=== PATIENT | female | born 1935 | race Caucasian/White ===

== ENCOUNTER 2018-01-16 17:45 | Emergency (ER) | payer OTHER ==
[~2018-01-16] VITALS: Ht 162.6 cm; Wt 83.0 kg
[~2018-01-16 17:45] MED LIST: AZIT250 PO; Amlodipine Bes2.5 MG PO; B-121000 MC2 PO; BYSTOLIC; CEPH500 PO; CETI10 PO; DILT240; DISO100ER; ESOM20; FURO20 PO; FURO40 PO; GLIP5ER PO; HYDACE5 PO; HYDACE7.5 PO; HYDCHL25; HYDCHL50; LORA.5; LORA.5 PO; LORA1; METO25ER; METO50ER; MULVITMIND PO; NEBI10 PO; OMEP20ER PO; PANT40 PO; POTCHL10ER; POTCHL20ER PO; PROACE100 PO; RXLORA1 PO; SPIHYD; TRAM50 PO; VALS80; VALS80 PO; WARF3; WARF3 PO; WARF6; WARF6 PO
[2018-01-16] MEDS ORDERED: TRAM50 PO (18:04)
[2018-01-16] MEDS ORDERED: LORA1 PO (18:04)
[2018-01-16 18:55] LABS: Calcium, Ionized (POC) 0.84 mmol/L (1.10-1.46); Chloride (POC) 103 mmol/L (98-108); Creatinine (POC) 0.8 mg/dL (0.6-1.0); Glucose (ISTAT POC) 141 mg/dL (70-99); Hemoglobin (POC) 15.3 g/dL (12.0-16.0); Potassium (POC) 3.8 mmol/L (3.5-5.5); Sodium (POC) 136 mmol/L (135-148); Total CO2 (POC) 24 mmol/L (21-32)
[2018-01-16 19:00] LABS: BASOPHILS ABSOLUTE AUTO 0.04 K/mm3 (0.00-0.23); BASOPHILS PERCENT AUTO 1 % (0-2); EOSINOPHILS ABSOLUTE AUTO 0.09 K/mm3 (0.00-0.68); EOSINOPHILS PERCENT AUTO 1 % (0-6); Hemoglobin 14.8 g/dL (11.5-16.0); IMMATURE GRAN ABSOLUTE AUTO 0.04 K/mm3 (0.00-0.10); IMMATURE GRAN PERCENT AUTO 1 % (0-1); LYMPHOCYTES ABSOLUTE AUTO 1.23 K/mm3 (0.84-5.20); LYMPHOCYTES PERCENT AUTO 19 % (21-46); MONOCYTES ABSOLUTE AUTO 0.43 K/mm3 (0.16-1.47); MONOCYTES PERCENT AUTO 7 % (4-13); Mean Corpuscular HGB Conc 32.9 g/dL (31.5-36.5); Mean Corpuscular Volume 88 fL (80-100); Mean Platelet Volume 8.8 fL (9.1-12.4); NEUTROPHILS ABSOLUTE AUTO 4.59 K/mm3 (1.96-9.15); NEUTROPHILS PERCENT AUTO 72 % (41-73); Platelet Count 170 K/mm3 (150-400); RDW Coefficient Variation 13.2 % (11.7-14.2); RDW Standard Deviation 42.9 fL (35.1-46.3); White Blood Cell Count 6.42 K/mm3 (4.00-11.30)
[2018-01-16 19:17] LABS: International Normalized Ratio 2.13; Prothrombin Time Results 22.7 Sec (9.7-11.5)
[2018-01-16 19:23] LABS: Alanine Aminotransfer (ALT/SGP 15 U/L (12-78); Albumin, Blood 3.6 g/dL (3.4-5.0); Albumin/Globulin Ratio 0.9 (0.8-1.8); Alk Phos 71 U/L (50-136); Anion Gap 10 mmol/L (6-16); Aspartate Aminotrans (AST/SGOT 17 U/L (12-37); Bilirubin, Total 0.4 mg/dL (0.1-1.0); Blood Urea Nitrogen 18 mg/dL (8-24); Bun/Creatinine Ratio 21.8 (12.0-20.0); CO2, Blood 26 mmol/L (21-32); Calcium, Blood 9.2 mg/dL (8.5-10.1); Chloride, Blood 102 mmol/L (98-108); Creatinine, Blood 0.83 mg/dL (0.40-1.00); Globulin, Blood 4.1 g/dL (2.2-4.0); Glomerular Filtration Rate >60 (60-); Glucose, Blood 136 mg/dL (70-99); Potassium, Blood 3.8 mmol/L (3.5-5.5); Sodium, Blood 138 mmol/L (136-145); Total Protein, Blood 7.7 g/dL (6.4-8.2)
[2018-01-16] MEDS ORDERED: AMLO5 PO (19:44)
== END 2018-01-16 21:34 | disposition home or self-care (01) ==
LOC: ER 17:45
PROVIDERS: Emergency Medicine
DX: S20.211A Contusion of right front wall of thorax, initial encounter (principal); S00.83XA Contusion of other part of head, initial encounter; I50.9 Heart failure, unspecified; I48.91 Unspecified atrial fibrillation; Z88.8 Allergy status to other drugs, medicaments and biological substances; Z88.7 Allergy status to serum and vaccine; Z88.0 Allergy status to penicillin; Z88.5 Allergy status to narcotic agent; Z79.899 Other long term (current) drug therapy; Z79.01 Long term (current) use of anticoagulants; Z87.891 Personal history of nicotine dependence; W01.0XXA Fall on same level from slipping, tripping and stumbling without subsequent striking against object, initial encounter
CPT/HCPCS: 36415; 70450; 71260; 72125; 74177; 80047; 80053; 83690; 85014; 85025; 85610; 99284; J7030; Q9967

== ENCOUNTER → 2018-01-26 | Outpatient (CLI) | payer OTHER ==
[~2018-01-26] MED LIST changes: +AMLO5 PO; +LORA1 PO
[2018-01-26 13:12] LABS: Source, Urine Catheter
[2018-01-26 14:25] LABS: Appearance, Urine Clear (Clear); Bilirubin, Urine Neg (Neg); Blood, Urine 1+ (Neg); Color, Urine Yellow (P-Yellow); Glucose Qualitative, Urine Neg (Neg); Ketones, Urine Neg (Neg); Leukocyte Esterase, Urine Neg (Neg); Nitrite, Urine Neg (Neg); Protein, Urine 1+ (Neg); Specific Gravity, Urine 1.015 (1.003-1.022); Urobilinogen, Urine NORM (Normal)
[2018-01-26 14:46] LABS: White Blood Cells, Urine 0-2 /hpf (0-5)
[2018-01-26 14:48] LABS: Bacteria Few /hpf; Hyaline Casts 0-2 /lpf (0-2); Squamous Epithelial Cells Few /hpf (Few)
== END ==
LOC: LAB SHORT 12:51 → OLS 12:51
PROVIDERS: Nurse Practitioner Women's Health
DX: N39.0 Urinary tract infection, site not specified (principal); N95.2 Postmenopausal atrophic vaginitis; N81.10 Cystocele, unspecified; N99.3 Prolapse of vaginal vault after hysterectomy; Z91.81 History of falling; Z96.0 Presence of urogenital implants
CPT/HCPCS: 81001

== ENCOUNTER → 2018-12-16 | Outpatient (CLI) | payer OTHER ==
[~2018-12-16] MED LIST changes: +Pyridium200 MG PO
== END | disposition home or self-care (01) ==
LOC: LAB SHORT 09:00 → LAB 09:00
DX: R30.0 Dysuria (principal)
CPT/HCPCS: 87086

== ENCOUNTER 2018-12-19 17:24 | Emergency (ER) | payer OTHER ==
[~2018-12-19] VITALS: Ht 167.6 cm; Wt 81.7 kg
[~2018-12-19 17:24] MED LIST changes: -Pyridium200 MG PO
[2018-12-19 18:14] LABS: BASOPHILS ABSOLUTE AUTO 0.05 K/mm3 (0.00-0.23); BASOPHILS PERCENT AUTO 1 % (0-2); EOSINOPHILS ABSOLUTE AUTO 0.05 K/mm3 (0.00-0.68); EOSINOPHILS PERCENT AUTO 1 % (0-6); Hematocrit 43.4 % (33.0-51.0); Hemoglobin 14.1 g/dL (11.5-16.0); IMMATURE GRAN ABSOLUTE AUTO 0.14 K/mm3 (0.00-0.10); IMMATURE GRAN PERCENT AUTO 1 % (0-1); LYMPHOCYTES ABSOLUTE AUTO 2.11 K/mm3 (0.84-5.20); LYMPHOCYTES PERCENT AUTO 19 % (21-46); MONOCYTES ABSOLUTE AUTO 0.64 K/mm3 (0.16-1.47); MONOCYTES PERCENT AUTO 6 % (4-13); Mean Corpuscular HGB 29.9 pg (26.0-34.0); Mean Corpuscular HGB Conc 32.5 g/dL (31.5-36.5); NEUTROPHILS ABSOLUTE AUTO 8.12 K/mm3 (1.96-9.15); NEUTROPHILS PERCENT AUTO 73 % (41-73); Platelet Count 220 K/mm3 (150-400); RDW Coefficient Variation 13.6 % (11.7-14.2); RDW Standard Deviation 46.5 fL (35.1-46.3); Red Blood Cell Count 4.72 M/mm3 (3.80-5.20); White Blood Cell Count 11.11 K/mm3 (4.00-11.30)
[2018-12-19 18:18] LABS: Mean Corpuscular Volume 92 fL (80-100)
[2018-12-19] MEDS ORDERED: CEPH500 PO (18:22)
[2018-12-19] MEDS ORDERED: Pyridium200 MG PO (18:22)
[2018-12-19 18:43] LABS: Alanine Aminotransfer (ALT/SGP 20 U/L (12-78); Albumin, Blood 3.8 g/dL (3.4-5.0); Albumin/Globulin Ratio 0.9 (0.8-1.8); Alk Phos 76 U/L (50-136); Anion Gap 6 mmol/L (6-16); Aspartate Aminotrans (AST/SGOT 18 U/L (12-37); Bilirubin, Total 0.7 mg/dL (0.1-1.0); Blood Urea Nitrogen 23 mg/dL (8-24); Bun/Creatinine Ratio 28.8 (12.0-20.0); CO2, Blood 26 mmol/L (21-32); Chloride, Blood 104 mmol/L (98-108); Globulin, Blood 4.3 g/dL (2.2-4.0); Glomerular Filtration Rate >60 (60-); Glucose, Blood 157 mg/dL (70-99); Potassium, Blood 3.9 mmol/L (3.5-5.5); Sodium, Blood 136 mmol/L (136-145); Total Protein, Blood 8.1 g/dL (6.4-8.2); Troponin I <0.015 ng/mL (0.000-0.040)
[2018-12-19 18:55] LABS: International Normalized Ratio 1.7; Prothrombin Time Results 17.2 Sec (9.7-11.5)
== END 2018-12-19 19:42 | disposition home or self-care (01) ==
LOC: ER 17:24
PROVIDERS: Physician Assistant
DX: I11.0 Hypertensive heart disease with heart failure (principal); I50.9 Heart failure, unspecified; E11.9 Type 2 diabetes mellitus without complications; F41.9 Anxiety disorder, unspecified; I48.91 Unspecified atrial fibrillation; K21.9 Gastro-esophageal reflux disease without esophagitis; M19.90 Unspecified osteoarthritis, unspecified site; Z85.3 Personal history of malignant neoplasm of breast; Z87.891 Personal history of nicotine dependence
CPT/HCPCS: 71046; 80053; 83880; 84484; 85025; 85610; 93005; 93010; 99285-25

== ENCOUNTER → 2019-06-12 | Outpatient (CLI) | payer OTHER ==
[~2019-06-12] MED LIST changes: +ATOR10 PO; +HYDR10 PO; +Klor-Con 1010 MEQ PO; +LEVSOD25 PO; +LOSA50 PO; -POTCHL20ER PO; +Pyridium200 MG PO; +[UNRECOGNIZED DRUG - OTHER] TOP
[2019-06-13 15:07] LABS: HPV 16 Negative (Negative); HPV 18 Negative (Negative); HPV OTHER HR TYPES Negative (Negative)
== END ==
LOC: LAB 12:27 → LAB SHORT 12:27
PROVIDERS: Nurse Practitioner Women's Health
DX: Z12.72 Encounter for screening for malignant neoplasm of vagina (principal)
CPT/HCPCS: 87624; G0123

== ENCOUNTER 2019-06-17 11:58 | Emergency (ER) | payer OTHER ==
[~2019-06-17] VITALS: Ht 162.6 cm; Wt 77.6 kg
[~2019-06-17 11:58] MED LIST changes: -ATOR10 PO; -HYDR10 PO; -LEVSOD25 PO; -LOSA50 PO; -[UNRECOGNIZED DRUG - OTHER] TOP
[2019-06-17 12:44] LABS: BASOPHILS ABSOLUTE AUTO 0.04 K/mm3 (0.00-0.23); BASOPHILS PERCENT AUTO 1 % (0-2); EOSINOPHILS ABSOLUTE AUTO 0.07 K/mm3 (0.00-0.68); EOSINOPHILS PERCENT AUTO 1 % (0-6); Hematocrit 45.8 % (33.0-51.0); Hemoglobin 14.7 g/dL (11.5-16.0); IMMATURE GRAN ABSOLUTE AUTO 0.03 K/mm3 (0.00-0.10); IMMATURE GRAN PERCENT AUTO 0 % (0-1); LYMPHOCYTES ABSOLUTE AUTO 1.76 K/mm3 (0.84-5.20); LYMPHOCYTES PERCENT AUTO 23 % (21-46); MONOCYTES ABSOLUTE AUTO 0.43 K/mm3 (0.16-1.47); MONOCYTES PERCENT AUTO 6 % (4-13); Mean Corpuscular HGB 29.1 pg (26.0-34.0); Mean Corpuscular HGB Conc 32.1 g/dL (31.5-36.5); Mean Corpuscular Volume 91 fL (80-100); Mean Platelet Volume 8.9 fL (9.1-12.4); NEUTROPHILS ABSOLUTE AUTO 5.35 K/mm3 (1.96-9.15); NEUTROPHILS PERCENT AUTO 70 % (41-73); Platelet Count 186 K/mm3 (150-400); RDW Coefficient Variation 13.2 % (11.7-14.2); RDW Standard Deviation 43.9 fL (35.1-46.3); Red Blood Cell Count 5.06 M/mm3 (3.80-5.20); White Blood Cell Count 7.68 K/mm3 (4.00-11.30)
[2019-06-17 12:59] LABS: International Normalized Ratio 2.58; Prothrombin Time Results 25.1 Sec (9.7-11.5)
[2019-06-17 13:23] LABS: Albumin, Blood 3.8 g/dL (3.4-5.0); Bilirubin, Total 0.8 mg/dL (0.1-1.0); Bun/Creatinine Ratio 16.7 (12.0-20.0); Calcium, Blood 9.2 mg/dL (8.5-10.1); Creatinine, Blood 0.96 mg/dL (0.40-1.00); Total Protein, Blood 7.8 g/dL (6.4-8.2)
[2019-06-17 13:34] LABS: Bilirubin, Urine Neg (Neg); Blood, Urine 1+ (Neg); Glucose Qualitative, Urine Neg (Neg); Ketones, Urine Neg (Neg); Leukocyte Esterase, Urine 3+ (Neg); Nitrite, Urine Neg (Neg); Protein, Urine Neg (Neg); Source, Urine Clean Catch; Urobilinogen, Urine NORM (Normal)
[2019-06-17 14:13] LABS: Appearance, Urine Clear (Clear); Color, Urine Yellow (P-Yellow)
[2019-06-17 14:14] LABS: White Blood Cells, Urine 25-50 /hpf (0-5)
[2019-06-17 14:15] LABS: Bacteria Mod /hpf; Red Blood Cells, Urine 0-2 /hpf (0-2); Squamous Epithelial Cells Mod /hpf (Few)
[2019-06-17] MEDS ORDERED: LEVSOD25 PO (14:32)
[2019-06-17] MEDS ORDERED: LOSA50 PO (14:35)
== END 2019-06-17 16:43 | disposition home or self-care (01) ==
LOC: ER 11:58
PROVIDERS: Physician Assistant
DX: G45.9 Transient cerebral ischemic attack, unspecified (principal); I11.0 Hypertensive heart disease with heart failure; I50.9 Heart failure, unspecified; I48.91 Unspecified atrial fibrillation; E11.9 Type 2 diabetes mellitus without complications; F41.9 Anxiety disorder, unspecified; K21.9 Gastro-esophageal reflux disease without esophagitis; Z87.891 Personal history of nicotine dependence
CPT/HCPCS: 36415; 70450; 80053; 81001; 85025; 85610; 87086; 93005; 93010; 96374; 99284-25; J0360

== ENCOUNTER 2019-06-19 10:13 | Observation (INO) | payer OTHER ==
[~2019-06-19] VITALS: Ht 162.6 cm; Wt 75.5 kg
[~2019-06-19 10:13] MED LIST changes: +LEVSOD25 PO; +LOSA50 PO
[2019-06-19 11:12] LABS: BASOPHILS ABSOLUTE AUTO 0.02 K/mm3 (0.00-0.23); BASOPHILS PERCENT AUTO 0 % (0-2); EOSINOPHILS ABSOLUTE AUTO 0.04 K/mm3 (0.00-0.68); EOSINOPHILS PERCENT AUTO 0 % (0-6); Hematocrit 43.5 % (33.0-51.0); Hemoglobin 14.1 g/dL (11.5-16.0); IMMATURE GRAN ABSOLUTE AUTO 0.03 K/mm3 (0.00-0.10); IMMATURE GRAN PERCENT AUTO 0 % (0-1); LYMPHOCYTES PERCENT AUTO 12 % (21-46); MONOCYTES ABSOLUTE AUTO 0.53 K/mm3 (0.16-1.47); MONOCYTES PERCENT AUTO 6 % (4-13); Mean Corpuscular HGB 29.9 pg (26.0-34.0); Mean Corpuscular HGB Conc 32.4 g/dL (31.5-36.5); Mean Corpuscular Volume 92 fL (80-100); NEUTROPHILS ABSOLUTE AUTO 7.81 K/mm3 (1.96-9.15); NEUTROPHILS PERCENT AUTO 82 % (41-73); Platelet Count 152 K/mm3 (150-400); RDW Coefficient Variation 13.2 % (11.7-14.2); Red Blood Cell Count 4.72 M/mm3 (3.80-5.20); White Blood Cell Count 9.53 K/mm3 (4.00-11.30)
[2019-06-19 11:29] LABS: International Normalized Ratio 3.08; Prothrombin Time Results 29.5 Sec (9.7-11.5)
[2019-06-19 11:36] LABS: Alanine Aminotransfer (ALT/SGP 20 U/L (12-78); Albumin, Blood 3.3 g/dL (3.4-5.0); Albumin/Globulin Ratio 0.8 (0.8-1.8); Alk Phos 68 U/L (50-136); Anion Gap 5 mmol/L (6-16); Aspartate Aminotrans (AST/SGOT 17 U/L (12-37); Blood Urea Nitrogen 18 mg/dL (8-24); Bun/Creatinine Ratio 21.5 (12.0-20.0); CO2, Blood 28 mmol/L (21-32); Calcium, Blood 8.5 mg/dL (8.5-10.1); Chloride, Blood 104 mmol/L (98-108); Creatinine, Blood 0.84 mg/dL (0.40-1.00); Glomerular Filtration Rate >60 (60-); Glucose, Blood 147 mg/dL (70-99); Potassium, Blood 3.8 mmol/L (3.5-5.5); Sodium, Blood 137 mmol/L (136-145); Total Protein, Blood 7.3 g/dL (6.4-8.2)
[2019-06-19] MEDS ORDERED: WARF3 PO (12:20)
[2019-06-19] MEDS ORDERED: LOSA50 PO (12:21)
[2019-06-19] MEDS ORDERED: [UNRECOGNIZED DRUG - OTHER] TOP (12:22)
--- NOTE | 2019-06-19 18:20 | NUR ---
SHIFT SUMMARY 1455 RECEIVED PT TO 337 FROM ER. A&O, PLEASANT AND CO-OP WITH FAMILY AT . RECEIVED REPORT FROM BASSEM GOODEN. PT TO ER WITH C/O CONFUSION AND SPEECH DIFFICULTY INITIALLY BUT LATER C/O R ARM SWELLING AND NUMBNESS. PT TO ER A COUPLE OF DAYS AGO FOR SAME COMPLAINT AND WAS REPORTED TO HAVE HAD A TIA. PT WITH HX OF R MASTECTOMY AND NOW LYMPHODEMA. US AND ECHO COMPLETE IN ER. HX OF CHF, A-FIB, HTN, AND ANXIETY. R ARM SWELLING AND REDNESS IMPROVING PER PT AND DAUGHTERS IN . PT MEDICATED FOR C/O MOREIRA; TYLENOL GIVEN PER EMAR. COUMADIN GIVEN FOR AFIB. PER PCU MX TECH, PT PRESENTLY A-FIB @ 81. BP ELEVATED IN ER. PER BASSEM GOODEN, PT RECEIVED BP MEDICATION AND BP DIMITRY'D; SEE CHART. PT TO RECEIVE ADDITIONAL BP MEDS TONIGHT. PT HAS BEEN RESTING QUIETLY AND VISITING WITH SEVERAL DAUGHTERS IN AT BS. SITTING UP TO EOB EATING DINNER. NO S/SX OF DISTRESS NOTED OR REPORTED. CALL LT IN REACH.
--- NOTE | 2019-06-19 23:06 | NUR ---
PT HYPERTENSIVE NIGHT HOSPITALIST INFORMED. GAVE PT'S SCHEDULED BP MEDS, BP 172/128 FORY-FIVE MINUTES LATER. GAVE PRN ORAL APRESOLINE. BP 177/112 ONE HOUR LATER. HOSPITALIST ORDERED IV APRESOLINE. WILL CONTINUE TO MONITOR.
[2019-06-20 05:01] LABS: BASOPHILS ABSOLUTE AUTO 0.03 K/mm3 (0.00-0.23); BASOPHILS PERCENT AUTO 0 % (0-2); EOSINOPHILS ABSOLUTE AUTO 0.07 K/mm3 (0.00-0.68); EOSINOPHILS PERCENT AUTO 1 % (0-6); Hemoglobin 13.6 g/dL (11.5-16.0); IMMATURE GRAN ABSOLUTE AUTO 0.04 K/mm3 (0.00-0.10); IMMATURE GRAN PERCENT AUTO 0 % (0-1); LYMPHOCYTES ABSOLUTE AUTO 1.12 K/mm3 (0.84-5.20); LYMPHOCYTES PERCENT AUTO 10 % (21-46); MONOCYTES ABSOLUTE AUTO 0.69 K/mm3 (0.16-1.47); MONOCYTES PERCENT AUTO 6 % (4-13); Mean Corpuscular HGB 29.1 pg (26.0-34.0); Mean Corpuscular HGB Conc 32.4 g/dL (31.5-36.5); Mean Corpuscular Volume 90 fL (80-100); Mean Platelet Volume 8.9 fL (9.1-12.4); NEUTROPHILS ABSOLUTE AUTO 9.43 K/mm3 (1.96-9.15); NEUTROPHILS PERCENT AUTO 83 % (41-73); Platelet Count 146 K/mm3 (150-400); RDW Coefficient Variation 13.3 % (11.7-14.2); Red Blood Cell Count 4.67 M/mm3 (3.80-5.20); White Blood Cell Count 11.38 K/mm3 (4.00-11.30)
[2019-06-20 05:19] LABS: International Normalized Ratio 2.58; Prothrombin Time Results 25.1 Sec (9.7-11.5)
--- NOTE | 2019-06-20 06:04 | NUR ---
GOT REPORT FROM ALEXSANDRA GOODEN. PT'S BP 171/113 PRN IV HYDRALAZINE GIVEN AND BP CAME DOWN TO 148/95. SHE WAS ABLE TO DOZE ON AND OFF T/O NIGHT BUT C/O HEATING DUCT TOO LOUD AND GIVEN EARPLUGS FOR SOUND. SHE SAID IT HELPED A LITTLE. NO C/O PAIN. [place] TO JESUSITA. A/O CALLING APPROPRIATELY.
[2019-06-20] MEDS ORDERED: ATOR10 PO (12:06)
[2019-06-20] MEDS ORDERED: HYDR10 PO (12:08)
[2019-06-20] MEDS ORDERED: CEPH500 PO (12:20)
--- NOTE | 2019-06-20 16:14 | NUR ---
provided AD information
--- NOTE | 2019-06-20 16:52 | NUR ---
DISCHARGE PT WAS DISCHARGED TO HOME. THIS RN EXPLAINED DISCHARGE INSTRUCTIONS TO PT AND PT'S FAMILY. THEY REPORT THEY UNDERSTAND. MEDICATIONS FAXED TO [facility] IN [place] PER REQUEST. PT TRANSFERRED TO PRIVATE VEHICLE VIA WHEELCHAIR BY LANDSCAPING MANAGER. PT'S BELONGINGS WITH PT AND PT'S SPOUSE.
--- NOTE | 2019-06-20 18:42 | NUR ---
Spiritual CAre initial note: Mrs. Villalobos was in the process of d/c. She has five dtrs, three of which were present. Family appears loving and devoted. Pt expressed confidence in continued recovery. No fears or concerns presented. Prayer provided.
== END 2019-06-20 14:17 | disposition home or self-care (01) ==
LOC: ER 10:13 → MEDS 10:14 → ENPENDDIS 06-20 11:02 → MEDS 06-20 14:17
PROVIDERS: Emergency Medicine; Nurse Practitioner Acute Care; ADMIT Internal Medicine
DX: L03.113 Cellulitis of right upper limb (principal); I89.0 Lymphedema, not elsewhere classified; G92 Toxic encephalopathy; I16.0 Hypertensive urgency; I48.20 Chronic atrial fibrillation, unspecified; E11.9 Type 2 diabetes mellitus without complications; E66.01 Morbid (severe) obesity due to excess calories; G45.9 Transient cerebral ischemic attack, unspecified; E78.5 Hyperlipidemia, unspecified; E03.9 Hypothyroidism, unspecified; K21.9 Gastro-esophageal reflux disease without esophagitis; F41.1 Generalized anxiety disorder; M19.90 Unspecified osteoarthritis, unspecified site; Z85.3 Personal history of malignant neoplasm of breast; Z90.11 Acquired absence of right breast and nipple
CPT/HCPCS: 36415; 80053; 85025; 85610; 93306; 93880; 96365; 96375; 99284-25; A9270; J0360; J0690; J7050

== ENCOUNTER 2019-10-23 17:36 | Emergency (ER) | payer OTHER ==
[~2019-10-23] VITALS: Ht 162.6 cm; Wt 76.2 kg
[~2019-10-23 17:36] MED LIST changes: +ATOR10 PO; +HYDR10 PO; +[UNRECOGNIZED DRUG - OTHER] TOP
[2019-10-23 18:12] LABS: BASOPHILS ABSOLUTE AUTO 0.04 K/mm3 (0.00-0.23); BASOPHILS PERCENT AUTO 0 % (0-2); EOSINOPHILS ABSOLUTE AUTO 0.08 K/mm3 (0.00-0.68); EOSINOPHILS PERCENT AUTO 1 % (0-6); Hematocrit 38.9 % (33.0-51.0); Hemoglobin 12.6 g/dL (11.5-16.0); IMMATURE GRAN ABSOLUTE AUTO 0.04 K/mm3 (0.00-0.10); IMMATURE GRAN PERCENT AUTO 0 % (0-1); LYMPHOCYTES ABSOLUTE AUTO 1.09 K/mm3 (0.84-5.20); LYMPHOCYTES PERCENT AUTO 11 % (21-46); MONOCYTES ABSOLUTE AUTO 0.71 K/mm3 (0.16-1.47); MONOCYTES PERCENT AUTO 7 % (4-13); Mean Corpuscular HGB 29.9 pg (26.0-34.0); Mean Corpuscular HGB Conc 32.4 g/dL (31.5-36.5); Mean Corpuscular Volume 92 fL (80-100); Mean Platelet Volume 8.3 fL (9.1-12.4); NEUTROPHILS ABSOLUTE AUTO 8.31 K/mm3 (1.96-9.15); NEUTROPHILS PERCENT AUTO 81 % (41-73); Platelet Count 213 K/mm3 (150-400); RDW Coefficient Variation 13.6 % (11.7-14.2); RDW Standard Deviation 46.1 fL (35.1-46.3); Red Blood Cell Count 4.22 M/mm3 (3.80-5.20); White Blood Cell Count 10.27 K/mm3 (4.00-11.30)
[2019-10-23 18:35] LABS: International Normalized Ratio 2.89; Prothrombin Time Results 29.1 Sec (9.7-11.5)
[2019-10-23 19:09] LABS: Alanine Aminotransfer (ALT/SGP 17 U/L (12-78); Albumin, Blood 3.3 g/dL (3.4-5.0); Albumin/Globulin Ratio 0.9 (0.8-1.8); Alk Phos 67 U/L (50-136); Anion Gap 5 mmol/L (6-16); Aspartate Aminotrans (AST/SGOT 18 U/L (12-37); Bilirubin, Total 0.5 mg/dL (0.1-1.0); Blood Urea Nitrogen 15 mg/dL (8-24); Bun/Creatinine Ratio 17.5 (12.0-20.0); CO2, Blood 26 mmol/L (21-32); Calcium, Blood 8.8 mg/dL (8.5-10.1); Chloride, Blood 102 mmol/L (98-108); Creatinine, Blood 0.86 mg/dL (0.40-1.00); Globulin, Blood 3.6 g/dL (2.2-4.0); Glomerular Filtration Rate >60 (60-); Glucose, Blood 161 mg/dL (70-99); Potassium, Blood 3.8 mmol/L (3.5-5.5); Sodium, Blood 133 mmol/L (136-145); Total Protein, Blood 6.9 g/dL (6.4-8.2)
[2019-10-23] MEDS ORDERED: Norco 5-325 Ta1 EACH PO (20:08)
== END 2019-10-23 20:27 | disposition home or self-care (01) ==
LOC: ER 17:36
PROVIDERS: Physician Assistant
DX: S40.021A Contusion of right upper arm, initial encounter (principal); I89.0 Lymphedema, not elsewhere classified; X50.9XXA Other and unspecified overexertion or strenuous movements or postures, initial encounter; Z88.0 Allergy status to penicillin; Z88.8 Allergy status to other drugs, medicaments and biological substances; Z88.5 Allergy status to narcotic agent; Z79.899 Other long term (current) drug therapy; Z79.01 Long term (current) use of anticoagulants; E11.9 Type 2 diabetes mellitus without complications; I11.0 Hypertensive heart disease with heart failure; I50.9 Heart failure, unspecified; I48.91 Unspecified atrial fibrillation; K21.9 Gastro-esophageal reflux disease without esophagitis; E03.9 Hypothyroidism, unspecified; Z85.3 Personal history of malignant neoplasm of breast; F41.9 Anxiety disorder, unspecified; Z87.891 Personal history of nicotine dependence
CPT/HCPCS: 36415; 76882; 80053; 82550; 84484; 85025; 85610; 93005; 93010; 99284-25; A9270-GY

== ENCOUNTER 2020-06-22 12:14 | Emergency (ER) | payer OTHER ==
[~2020-06-22] VITALS: Ht 165.1 cm; Wt 79.4 kg
[~2020-06-22 12:14] MED LIST changes: +Norco 5-325 Ta1 EACH PO
[2020-06-22] MEDS ORDERED: ELIQUIS5 MG PO (12:20)
[2020-06-22 13:03] LABS: BASOPHILS ABSOLUTE AUTO 0.04 K/mm3 (0.00-0.23); BASOPHILS PERCENT AUTO 1 % (0-2); EOSINOPHILS ABSOLUTE AUTO 0.09 K/mm3 (0.00-0.68); EOSINOPHILS PERCENT AUTO 1 % (0-6); Hematocrit 44.8 % (33.0-51.0); Hemoglobin 14.2 g/dL (11.5-16.0); IMMATURE GRAN ABSOLUTE AUTO 0.03 K/mm3 (0.00-0.10); IMMATURE GRAN PERCENT AUTO 0 % (0-1); LYMPHOCYTES ABSOLUTE AUTO 1.57 K/mm3 (0.84-5.20); LYMPHOCYTES PERCENT AUTO 22 % (21-46); MONOCYTES ABSOLUTE AUTO 0.47 K/mm3 (0.16-1.47); MONOCYTES PERCENT AUTO 7 % (4-13); Mean Corpuscular HGB 29.1 pg (26.0-34.0); Mean Corpuscular HGB Conc 31.7 g/dL (31.5-36.5); Mean Corpuscular Volume 92 fL (80-100); Mean Platelet Volume 8.9 fL (9.1-12.4); NEUTROPHILS ABSOLUTE AUTO 5.05 K/mm3 (1.96-9.15); NEUTROPHILS PERCENT AUTO 70 % (41-73); Platelet Count 198 K/mm3 (150-400); RDW Coefficient Variation 13.5 % (11.7-14.2); RDW Standard Deviation 46.2 fL (35.1-46.3); Red Blood Cell Count 4.88 M/mm3 (3.80-5.20); White Blood Cell Count 7.25 K/mm3 (4.00-11.30)
[2020-06-22 13:26] LABS: Alanine Aminotransfer (ALT/SGP 17 U/L (12-78); Albumin, Blood 3.5 g/dL (3.4-5.0); Albumin/Globulin Ratio 0.9 (0.8-1.8); Alk Phos 74 U/L (50-136); Anion Gap 7 mmol/L (6-16); Aspartate Aminotrans (AST/SGOT 19 U/L (12-37); Blood Urea Nitrogen 15 mg/dL (8-24); Bun/Creatinine Ratio 17.7 (12.0-20.0); CO2, Blood 29 mmol/L (21-32); Calcium, Blood 8.8 mg/dL (8.5-10.1); Chloride, Blood 102 mmol/L (98-108); Creatinine, Blood 0.85 mg/dL (0.40-1.00); Globulin, Blood 4.1 g/dL (2.2-4.0); Glomerular Filtration Rate >60 (60-); Glucose, Blood 107 mg/dL (70-99); Potassium, Blood 3.7 mmol/L (3.5-5.5); Sodium, Blood 138 mmol/L (136-145); Total Protein, Blood 7.6 g/dL (6.4-8.2); Troponin I <0.015 ng/mL (0.000-0.040)
[2020-06-22] MEDS ORDERED: FAMO20 PO (13:53)
[2020-06-22] MEDS ORDERED: CARAFATE1 GM/10 M1 PO (13:53)
== END 2020-06-22 14:25 | disposition home or self-care (01) ==
LOC: ER 12:14
PROVIDERS: Emergency Medicine
DX: K21.9 Gastro-esophageal reflux disease without esophagitis (principal); I11.0 Hypertensive heart disease with heart failure; I50.9 Heart failure, unspecified; I48.91 Unspecified atrial fibrillation; E11.9 Type 2 diabetes mellitus without complications; E03.9 Hypothyroidism, unspecified; F41.9 Anxiety disorder, unspecified; Z87.891 Personal history of nicotine dependence; Z88.0 Allergy status to penicillin; Z88.8 Allergy status to other drugs, medicaments and biological substances; Z88.5 Allergy status to narcotic agent; Z79.899 Other long term (current) drug therapy; Z79.01 Long term (current) use of anticoagulants
CPT/HCPCS: 36415; 71046; 80053; 83880; 84484; 85025; 93005; 93010; 96374; 99284-25; J2060

== ENCOUNTER 2020-07-11 04:26 | Emergency (ER) | payer OTHER ==
[~2020-07-11] VITALS: Ht 162.6 cm; Wt 76.2 kg
[~2020-07-11 04:26] MED LIST changes: +CARAFATE1 GM/10 M1 PO; +ELIQUIS5 MG PO; +FAMO20 PO
== END 2020-07-11 07:22 | disposition home or self-care (01) ==
LOC: ER 04:26
DX: K59.00 Constipation, unspecified (principal); I11.0 Hypertensive heart disease with heart failure; I50.9 Heart failure, unspecified; I48.91 Unspecified atrial fibrillation; Z88.0 Allergy status to penicillin; Z88.8 Allergy status to other drugs, medicaments and biological substances; Z88.5 Allergy status to narcotic agent; Z88.4 Allergy status to anesthetic agent; Z79.01 Long term (current) use of anticoagulants; Z79.899 Other long term (current) drug therapy; Z87.891 Personal history of nicotine dependence
CPT/HCPCS: 74018; 99283-25

== ENCOUNTER 2021-08-07 23:09 | Emergency (ER) | payer OTHER ==
[~2021-08-07] VITALS: Ht 162.6 cm; Wt 67.1 kg
== END 2021-08-08 01:34 | disposition home or self-care (01) ==
LOC: ER 23:09
DX: K59.00 Constipation, unspecified (principal); Z88.0 Allergy status to penicillin; Z88.8 Allergy status to other drugs, medicaments and biological substances; Z88.5 Allergy status to narcotic agent; Z79.899 Other long term (current) drug therapy; I11.0 Hypertensive heart disease with heart failure; I50.9 Heart failure, unspecified; I48.91 Unspecified atrial fibrillation; Z87.891 Personal history of nicotine dependence
CPT/HCPCS: 74019; 99283-25; A9270

== ENCOUNTER 2021-12-05 19:33 | Emergency (ER) | payer OTHER ==
[~2021-12-05] VITALS: Ht 167.6 cm; Wt 63.5 kg
== END 2021-12-05 22:39 | disposition home or self-care (01) ==
LOC: ER 19:33
DX: R10.30 Lower abdominal pain, unspecified (principal); Z87.891 Personal history of nicotine dependence; Z88.0 Allergy status to penicillin; Z88.5 Allergy status to narcotic agent; Z88.8 Allergy status to other drugs, medicaments and biological substances; Z79.899 Other long term (current) drug therapy; Z79.891 Long term (current) use of opiate analgesic
CPT/HCPCS: 74177; 93005; 93010; 99284-25; Q9967

== ENCOUNTER → 2021-12-14 | Outpatient (CLI) | payer OTHER | END | disposition home or self-care (01) | LOC: LAB SHORT 14:25 | DX: R82.79 Other abnormal findings on microbiological examination of urine (principal) | CPT/HCPCS: 87086 ==

== ENCOUNTER 2022-04-14 23:52 | Inpatient (IN) | payer OTHER ==
[~2022-04-14] VITALS: Ht 167.6 cm; Wt 72.1 kg
[~2022-04-14 23:52] MED LIST changes: +ONDA4ODT MM
[2022-04-15 00:58] LABS: BASOPHILS ABSOLUTE AUTO 0.01 K/mm3 (0.00-0.23); BASOPHILS PERCENT AUTO 0 % (0-2); EOSINOPHILS ABSOLUTE AUTO 0.01 K/mm3 (0.00-0.68); EOSINOPHILS PERCENT AUTO 0 % (0-6); Hematocrit 40.8 % (33.0-51.0); Hemoglobin 13.4 g/dL (11.5-16.0); IMMATURE GRAN ABSOLUTE AUTO 0.05 K/mm3 (0.00-0.10); IMMATURE GRAN PERCENT AUTO 0 % (0-1); LYMPHOCYTES ABSOLUTE AUTO 0.38 K/mm3 (0.84-5.20); LYMPHOCYTES PERCENT AUTO 3 % (21-46); MONOCYTES ABSOLUTE AUTO 0.41 K/mm3 (0.16-1.47); MONOCYTES PERCENT AUTO 3 % (4-13); Mean Corpuscular HGB Conc 32.8 g/dL (31.5-36.5); Mean Corpuscular Volume 92 fL (80-100); Mean Platelet Volume 8.8 fL (9.1-12.4); NEUTROPHILS PERCENT AUTO 94 % (41-73); Platelet Count 141 K/mm3 (150-400); RDW Coefficient Variation 13.8 % (11.7-14.2); RDW Standard Deviation 46.6 fL (35.1-46.3); Red Blood Cell Count 4.46 M/mm3 (3.80-5.20); White Blood Cell Count 13.46 K/mm3 (4.00-11.30)
[2022-04-15 01:15] LABS: Alanine Aminotransfer (ALT/SGP 76 U/L (12-78); Albumin, Blood 3.5 g/dL (3.4-5.0); Albumin/Globulin Ratio 0.9 (0.8-1.8); Alk Phos 96 U/L (50-136); Anion Gap 7 mmol/L (6-16); Aspartate Aminotrans (AST/SGOT 95 U/L (12-37); Bilirubin, Direct 0.4 mg/dL (0.0-0.3); Bilirubin, Indirect 0.7 mg/dL (0.1-0.7); Bilirubin, Total 1.1 mg/dL (0.1-1.0); Blood Urea Nitrogen 24 mg/dL (8-24); Bun/Creatinine Ratio 25.9 (12.0-20.0); C-REACTIVE PROTEIN, EXT RANGE <0.290 mg/dL (0.000-0.300); CO2, Blood 26 mmol/L (21-32); Calcium, Blood 8.8 mg/dL (8.5-10.1); Chloride, Blood 106 mmol/L (98-108); Creatinine, Blood 0.93 mg/dL (0.40-1.00); Globulin, Blood 3.9 g/dL (2.2-4.0); Glomerular Filtration Rate 59 (60-); Glucose, Blood 141 mg/dL (70-99); Potassium, Blood 3.1 mmol/L (3.5-5.5); Sodium, Blood 139 mmol/L (136-145); Total Protein, Blood 7.4 g/dL (6.4-8.2)
[2022-04-15 01:24] LABS: BAND PERCENT MAN 14 % (0-8); BASOPHILS PERCENT MAN 0 % (0-2); EOSINOPHILS PERCENT MAN 0 % (0-6); LYMPHOCYTES ABSOLUTE MAN 0.53 K/mm3 (0.84-5.20); LYMPHOCYTES PERCENT MAN 4 % (21-46); MONOCYTES ABSOLUTE MAN 0.53 K/mm3 (0.16-1.47); MONOCYTES PERCENT MAN 4 % (4-13); NEUTROPHILS ABSOLUTE MAN 12.38 K/mm3 (1.96-9.15); SEG NEUTROPHILS PERCENT MAN 78 % (41-73); TOTAL CELLS COUNTED 100
[2022-04-15 02:23] LABS: Influenza A, PCR NEGATIVE (NEGATIVE); Influenza B, PCR NEGATIVE (NEGATIVE); Resp Syncytial Virus, PCR NEGATIVE (NEGATIVE); SARS-Cov-2 (COVID-19) PCR, MMC NEGATIVE (NEGATIVE)
--- NOTE | 2022-04-15 05:05 | NUR ---
SHIFT SUMMARY PT ED ADMIT THIS AM. ARRIVED FROM ED AND IMMEDIATELY HAD TO USE THE RESTROOM. TRANSFERED WELL TO RESTROOM WITH FWW. CONTINENT. ALERT AND PLEASANT, STATES "I FEEL GOOD, JUST SLEEPY". TELEMETRY PLACED READING AFIB IN THE 80'S. EDEMA NOTED TO BLE'S AND LYMPHEDEMA TO RUE. PT HAS HAD A R MASTECTOMY. PT REPORTS DIARRHEA AT HOME BUT HAS NOT HAD ANY SINCE ADMISSION. LR BOLUS STARTED, WILL START MAINTENENCE FLUIDS FOLLOWING. VITAL SIGNS STABLE. WILL CONTINUE TO MONITOR.
[2022-04-15 06:04] LABS: BASOPHILS ABSOLUTE AUTO 0.04 K/mm3 (0.00-0.23); BASOPHILS PERCENT AUTO 0 % (0-2); EOSINOPHILS PERCENT AUTO 0 % (0-6); Hematocrit 37.5 % (33.0-51.0); Hemoglobin 12.2 g/dL (11.5-16.0); IMMATURE GRAN ABSOLUTE AUTO 0.14 K/mm3 (0.00-0.10); IMMATURE GRAN PERCENT AUTO 1 % (0-1); LYMPHOCYTES ABSOLUTE AUTO 0.48 K/mm3 (0.84-5.20); LYMPHOCYTES PERCENT AUTO 2 % (21-46); MONOCYTES ABSOLUTE AUTO 1.45 K/mm3 (0.16-1.47); MONOCYTES PERCENT AUTO 7 % (4-13); Mean Corpuscular HGB Conc 32.5 g/dL (31.5-36.5); Mean Corpuscular Volume 92 fL (80-100); Mean Platelet Volume 8.8 fL (9.1-12.4); NEUTROPHILS ABSOLUTE AUTO 20.31 K/mm3 (1.96-9.15); NEUTROPHILS PERCENT AUTO 91 % (41-73); Platelet Count 110 K/mm3 (150-400); RDW Coefficient Variation 13.9 % (11.7-14.2); RDW Standard Deviation 47.6 fL (35.1-46.3); Red Blood Cell Count 4.06 M/mm3 (3.80-5.20); White Blood Cell Count 22.42 K/mm3 (4.00-11.30)
[2022-04-15 06:48] LABS: Albumin/Globulin Ratio 0.9 (0.8-1.8); Calcium, Blood 8.4 mg/dL (8.5-10.1); Creatinine, Blood 0.85 mg/dL (0.40-1.00); Globulin, Blood 3.4 g/dL (2.2-4.0); Potassium, Blood 3.7 mmol/L (3.5-5.5); Total Protein, Blood 6.4 g/dL (6.4-8.2)
--- NOTE | 2022-04-15 15:54 | NUR ---
SHIFT SUMMARY: A&O X3. TELE REPORT 40'S AND 2.1 SEC PAUSE WHILE SLEEPING, PT ASYMPTOMATIC. VSS. PT ADVANCED FROM CLEAR TO THICK LIQUID WITHOUT ISSUE. EDEMA R ARM +2. FAMILY AT BEDSIDE. PT SLEEPING DURING MOST OF SHIFT, STATES DID NOT GET MUCH SLEEP THE NIGHT PRIOR. CALL LIGHT IN EACH, SIDE RAILS UP, AND BED ALARM ON FOR SAFETY.
--- NOTE | 2022-04-15 16:51 | NUR ---
Assumed care of patient at 1615, patient awake/alert in bed visiting with family. Handoff report given by daysray RN. Stool sample pending, no stool collection yet. Vitals stable, will continue to monitor.
--- NOTE | 2022-04-16 05:51 | NUR ---
SHIFT SUMMARY ADMITTED FOR GASTROENTERITIS/SEPSIS. FULL CODE. CELLULITIS NOT RULED OUT. CONTACT PRECAUTIONS FOR R/O CDIFF. REGULAR DIET. ON RA. ELIQUIST IS SCHEDULED. A&O X4. TELEMETRY: AFIB @ [address] IV ANTIB RX ARE SCHEDULED. LASIX IS SCHEDULED. HOPEFUL FOR DC HOME TODAY. HX OF BREAST CANCER W/MASTECTOMY. RIGHT ARM EDEMA NOTED. NO DIARRHEA REPORTED THIS SHIFT. STANDBY ASSIST W/FWW - BSC. BLOOD CULTURES POSITIVE THIS SHIFT FOR GRAM+ COCCI IN CHAINS. KAELYN SCHEDULED, HOSPITALIST INFORMED OF BLOOD CULTURES.
--- NOTE | 2022-04-16 08:00 | NUR ---
pt sitting up on side of bed, very anxious about not being able to use the phone to call her daughter, assisted her with that and she calmed some, but is trying to call for a ride home, explained that the hasn't rounded yet, we need to wait and see what says, a/ox3, forgetful, cooperative with care, follows commands well, denies pain, lungs are clear t/o, resp even and unlabored, no cough noted, on r/a, hrirr, tele in place running afib per monitor, see strip, 1-2+ edema noted to b/l le, right arm is very swollen with lymph edema, ambulates via walker, iv site to lac, site clear and patent, btx4, no bm durring the night, or this am, voids without diff, skin c/w/d, maew, general weakness, chucky, call light in reach.
[2022-04-16 10:49] LABS: BASOPHILS ABSOLUTE AUTO 0.03 K/mm3 (0.00-0.23); BASOPHILS PERCENT AUTO 0 % (0-2); EOSINOPHILS ABSOLUTE AUTO 0.07 K/mm3 (0.00-0.68); EOSINOPHILS PERCENT AUTO 1 % (0-6); Hematocrit 38.9 % (33.0-51.0); Hemoglobin 12.3 g/dL (11.5-16.0); IMMATURE GRAN ABSOLUTE AUTO 0.07 K/mm3 (0.00-0.10); IMMATURE GRAN PERCENT AUTO 1 % (0-1); LYMPHOCYTES ABSOLUTE AUTO 0.79 K/mm3 (0.84-5.20); LYMPHOCYTES PERCENT AUTO 5 % (21-46); MONOCYTES ABSOLUTE AUTO 0.72 K/mm3 (0.16-1.47); MONOCYTES PERCENT AUTO 5 % (4-13); Mean Corpuscular HGB Conc 31.6 g/dL (31.5-36.5); Mean Corpuscular Volume 95 fL (80-100); Mean Platelet Volume 9.3 fL (9.1-12.4); NEUTROPHILS PERCENT AUTO 89 % (41-73); Platelet Count 100 K/mm3 (150-400); RDW Coefficient Variation 13.7 % (11.7-14.2); RDW Standard Deviation 48.5 fL (35.1-46.3); White Blood Cell Count 15.18 K/mm3 (4.00-11.30)
[2022-04-16 11:12] LABS: Bun/Creatinine Ratio 24.5 (12.0-20.0); Calcium, Blood 8.4 mg/dL (8.5-10.1); Creatinine, Blood 0.78 mg/dL (0.40-1.00); Potassium, Blood 3.9 mmol/L (3.5-5.5)
--- NOTE | 2022-04-16 14:42 | NUR ---
pt resting in bed, family was in to pick her up as they thought she was going home, answered questions, no further needs, call light in reach.
--- NOTE | 2022-04-16 15:33 | NUR ---
pt woke up from nap disorieted, pulling off tele, thought she was at home, reoriented well. couldn't remember how she got here. call light in reach.
--- NOTE | 2022-04-16 18:14 | NUR ---
Pt still has intermitant confusion, is hypertensive, even after coreg, called and recieved order for labatolol, this was given, waiting on new b/p, pt up to bsc with assist, family in room, spoke with daughter, she is acknowleges mom has some dementia, and is looking for resources to help them. placed a pallative care consult, no further changes this shift. call light in reach.
--- NOTE | 2022-04-17 06:24 | NUR ---
SHIFT SUMMARY PATIENT ALERT AND ORIENTED X2-3. PATIENT IS CONFUSED AND HALLUCINATING THIS MORNING. MEDICATED PER EMAR FOR HTN. BED IN LOWEST POSITION WITH WHEELS LOCKED AND ALARM ON. CALL LIGHT WITHIN REACH. REPORT GIVEN TO ONCOMING RN.
--- NOTE | 2022-04-17 08:09 | NUR ---
pt children at bedside, pt awake and visiting, woke up very confused and thought she was at home, pleasant and cooperative with care, follows commands well, reorients easily, only pain she complains of is chronic knee pain, lungs are clear a bit dim t/o, resp even and unlabored, no cough noted, hrirr, tele in place running afib per monitor, see strip, +1 edema noted to b/l le, ppp faint, cap refill <3sec, vs stable, afebrile, iv site is clear and patent, btx4 hypoactive, abd flat soft nontender, voids via bsc, briefed as well, skin c/w/d, maew, chucky, call light in reach.
--- NOTE | 2022-04-17 09:55 | NUR ---
labatolol given for htn, family in room. pt awake, visiting. call light in reach.
--- NOTE | 2022-04-17 18:03 | NUR ---
pt was started on a new b/p med, b/p some better, lots of family in, good support. has been intermittantly confused, no further changes this shift. call light in reach.
--- NOTE | 2022-04-18 06:09 | NUR ---
SHIFT SUMMARY PATIENT ALERT AND ORIENTED X3. HAD NO COMPLAINTS OF PAIN OR SHORTNESS OF BREATH. NO ACUTE ISSUES NOTED OVERNIGHT. CALL LIGHT WITHIN REACH. REPORT GIVEN TO ONCOMING RN.
[2022-04-18 06:14] LABS: BASOPHILS ABSOLUTE AUTO 0.01 K/mm3 (0.00-0.23); BASOPHILS PERCENT AUTO 0 % (0-2); EOSINOPHILS PERCENT AUTO 0 % (0-6); Hematocrit 36.1 % (33.0-51.0); Hemoglobin 11.8 g/dL (11.5-16.0); IMMATURE GRAN ABSOLUTE AUTO 0.05 K/mm3 (0.00-0.10); IMMATURE GRAN PERCENT AUTO 1 % (0-1); LYMPHOCYTES ABSOLUTE AUTO 0.58 K/mm3 (0.84-5.20); LYMPHOCYTES PERCENT AUTO 8 % (21-46); MONOCYTES ABSOLUTE AUTO 0.27 K/mm3 (0.16-1.47); MONOCYTES PERCENT AUTO 4 % (4-13); Mean Corpuscular HGB 29.6 pg (26.0-34.0); Mean Corpuscular HGB Conc 32.7 g/dL (31.5-36.5); Mean Corpuscular Volume 91 fL (80-100); Mean Platelet Volume 9.4 fL (9.1-12.4); NEUTROPHILS ABSOLUTE AUTO 6.17 K/mm3 (1.96-9.15); NEUTROPHILS PERCENT AUTO 87 % (41-73); Platelet Count 142 K/mm3 (150-400); RDW Coefficient Variation 13.1 % (11.7-14.2); RDW Standard Deviation 43.6 fL (35.1-46.3); Red Blood Cell Count 3.99 M/mm3 (3.80-5.20); White Blood Cell Count 7.08 K/mm3 (4.00-11.30)
[2022-04-18 06:32] LABS: Bun/Creatinine Ratio 28.8 (12.0-20.0); Calcium, Blood 8.8 mg/dL (8.5-10.1); Creatinine, Blood 0.63 mg/dL (0.40-1.00); Potassium, Blood 4.4 mmol/L (3.5-5.5)
--- NOTE | 2022-04-18 19:42 | NUR ---
SHIFT SUMMARY PT AxOx3-4 WITH INTERM FORGETFULNESS/ MINOR CONFUSION. PT HAD EVAL WITH OCCUPATIONAL AND PHYSICAL THERAPY THIS SHIFT. MEDICATED FOR HYPERTENSION. PER RESTORATIVE AIDE, TELE RUNNING AFIB @95. PT DENIES PAIN THIS SHIFT. SPOKE WITH DAUGHTER, FRANK ON THE PHONE AND YOUNGER DAUGHTER IN PERSON. FAMILY WAS VERY CONCERNED ABOUT THEIR MOTHER'S SAFETY IF SHE WAS TO BE DISCHARGED BACK HOME. FRANK STATES SHE HAS NOT BEEN ABLE TO TAKE CARE OF HERSELF. PT CURRENTLY RESTING IN CHAIR WITH CALL LIGHT IN REACH. DENIES ANY NEEDS AT THIS TIME.
--- NOTE | 2022-04-19 05:45 | NUR ---
SUMMARY: PT A/OX3-4 BUT IS FORGETFULL AT TIMES W/REMINDERS PROVIDED PRN. SHE'S 1PA TO BSC TO VOID AND REPOSITIONS SELF IN BED. LYMPHOEDEMA PERSISTS TO R.ARM AND NEW IV PLACED TO L.AC VIA U/S AFTER PREVIOUS BEGAN LEAKING. HS IV ABX RECIEVED LATE RESULT. BP REMAINS HYPERTENSIVE BUT HAS IMPROVED SOME W/PRN COREG AND LABETOLOL. SHE CONT'S AFIB ON TELEMETRY AT 90'S-100'S BPM. NO ACUTE CHANGES. WCTM AND REPORT TO DAY RN.
[2022-04-19 07:44] LABS: BASOPHILS ABSOLUTE AUTO 0.01 K/mm3 (0.00-0.23); BASOPHILS PERCENT AUTO 0 % (0-2); EOSINOPHILS ABSOLUTE AUTO 0.03 K/mm3 (0.00-0.68); EOSINOPHILS PERCENT AUTO 0 % (0-6); Hematocrit 37.1 % (33.0-51.0); Hemoglobin 12.2 g/dL (11.5-16.0); IMMATURE GRAN ABSOLUTE AUTO 0.05 K/mm3 (0.00-0.10); IMMATURE GRAN PERCENT AUTO 1 % (0-1); LYMPHOCYTES ABSOLUTE AUTO 1.17 K/mm3 (0.84-5.20); LYMPHOCYTES PERCENT AUTO 11 % (21-46); MONOCYTES ABSOLUTE AUTO 0.62 K/mm3 (0.16-1.47); MONOCYTES PERCENT AUTO 6 % (4-13); Mean Corpuscular HGB 29.6 pg (26.0-34.0); Mean Corpuscular HGB Conc 32.9 g/dL (31.5-36.5); Mean Corpuscular Volume 90 fL (80-100); Mean Platelet Volume 9.2 fL (9.1-12.4); NEUTROPHILS ABSOLUTE AUTO 8.51 K/mm3 (1.96-9.15); NEUTROPHILS PERCENT AUTO 82 % (41-73); Platelet Count 173 K/mm3 (150-400); RDW Coefficient Variation 13.4 % (11.7-14.2); Red Blood Cell Count 4.12 M/mm3 (3.80-5.20); White Blood Cell Count 10.39 K/mm3 (4.00-11.30)
[2022-04-19 08:02] LABS: Albumin, Blood 2.9 g/dL (3.4-5.0); Albumin/Globulin Ratio 0.8 (0.8-1.8); Bilirubin, Total 0.5 mg/dL (0.1-1.0); Bun/Creatinine Ratio 31.6 (12.0-20.0); Calcium, Blood 9.4 mg/dL (8.5-10.1); Creatinine, Blood 0.79 mg/dL (0.40-1.00); Globulin, Blood 3.5 g/dL (2.2-4.0); Magnesium, Blood 2.3 mg/dL (1.6-2.4); Potassium, Blood 4.2 mmol/L (3.5-5.5); Total Protein, Blood 6.4 g/dL (6.4-8.2)
--- NOTE | 2022-04-19 17:13 | NUR ---
tHE PLAN FOR THIS PATIENT WAS TO DC TO HOME TODAY, HOWEVER SHE WAS UNABLE TO AMBULATE UP FOUR STEPS, WHICH THE PROVIDER WANTER HER TO DO WITH PT BEFORE DISCHARGE. THE NEW PLAN IS FOR HER TO DC TO HOME TOMORROW. BLOOD PRESSURE MEDICATIONS WERE ADJUSTED TODAY. BP AT THIS TIME 138/105.BP HAS BEEN LABILE APPETITE HAS BEEN GOOD. PATIENT APPEARED FATIGUED AND SOMWHAT CONFUSED DURING THE MORNING. SHE NAPPED AND IS MORE CLEAR THIS AFTERNOON. MOOD IS GOOD, SHE IS COOPERATIVE AND WILLING TO LEARN.
--- NOTE | 2022-04-20 05:29 | NUR ---
SHIFT SUMMARY A/OX3, FORGETFUL. 1P ASSIST TO BSC. DENIES PAIN OR SOB. TELE RUNNING AFIB IN THE 80S. VSS, NO ACUTE CHANGES AT THIS TIME. BED IN LOWEST POSITION WITH CALL LIGHT IN REACH. WILL CONTINUE TO MONITOR AND REPORT TO ONCOMING RN.
--- NOTE | 2022-04-20 07:56 | NUR ---
ASSUMED CARE OF PT- BEDSIDE REPORT COMPLETED WITH NIGHT RN. NOTED ON ASSESSMENT THE PT HAS WHITE PATCHES IN HER MOUTH LINING THE CHEEKS IN THE BACK. PT STATES IT FEELS LIKE THERE IS A FILM IN HER MOUTH. WILL SPEAK TO MD ON MORNING ROUNDS ABOUT POSSIBLE NEED FOR Tx.
[2022-04-20] MEDS ORDERED: CATAPRES0.2 M1 PO (12:21)
[2022-04-20] MEDS ORDERED: CLOT10 MT (12:22)
--- NOTE | 2022-04-20 16:48 | NUR ---
DISCHARGE NOTE- PT WAS GIVEN VERBAL AND WRITTEN DISCHARGE INSTRUCTIONS AND ACKNOWLEDGED UNDERSTANDING. PT IV AND TELE DC'D PRIOR TO DISCHARGE. FAMILY PRESENT AT THE TIME OF DISCHARGE. PT ESCORTED OUT VIA WC BY THE TRAFFIC CONTROL SUPERVISOR NO S&S OF DISTRESS NOTED AT THE TIME OF DISCHARGE.
== END 2022-04-20 14:51 | disposition home health service (06) | DRG 872 ==
LOC: ER 23:52 → MEDS 04-15 02:48 → ENPENDDIS 04-19 16:30 → MEDS 04-20 14:51
PROVIDERS: Family Medicine; Hospitalist; Internal Medicine; Student in an Organized Health Care Education/Training Program; ADMIT Internal Medicine
DX: A41.9 Sepsis, unspecified organism (principal); L03.113 Cellulitis of right upper limb; E87.2 Acidosis; I48.20 Chronic atrial fibrillation, unspecified; I50.32 Chronic diastolic (congestive) heart failure; Z20.822 Contact with and (suspected) exposure to COVID-19; I89.0 Lymphedema, not elsewhere classified; I16.0 Hypertensive urgency; I11.0 Hypertensive heart disease with heart failure; E87.6 Hypokalemia; R65.20 Severe sepsis without septic shock; K52.9 Noninfective gastroenteritis and colitis, unspecified; E03.9 Hypothyroidism, unspecified; F41.8 Other specified anxiety disorders; G89.29 Other chronic pain; M81.0 Age-related osteoporosis without current pathological fracture; K21.9 Gastro-esophageal reflux disease without esophagitis; M54.9 Dorsalgia, unspecified; E11.51 Type 2 diabetes mellitus with diabetic peripheral angiopathy without gangrene; E11.319 Type 2 diabetes mellitus with unspecified diabetic retinopathy without macular edema; Z85.3 Personal history of malignant neoplasm of breast; Z90.49 Acquired absence of other specified parts of digestive tract; Z90.89 Acquired absence of other organs; Z90.710 Acquired absence of both cervix and uterus; Z90.11 Acquired absence of right breast and nipple; Z98.41 Cataract extraction status, right eye; Z98.42 Cataract extraction status, left eye; Z98.890 Other specified postprocedural states; Z87.891 Personal history of nicotine dependence; Z88.0 Allergy status to penicillin; Z88.5 Allergy status to narcotic agent; Z88.8 Allergy status to other drugs, medicaments and biological substances; Z79.890 Hormone replacement therapy; Z79.01 Long term (current) use of anticoagulants; Z79.899 Other long term (current) drug therapy
CPT/HCPCS: 0241U; 36415; 80048; 80053; 80076; 83605; 83690; 83735; 84100; 84145; 85025; 85651; 86140; 87040; 93005; 93010; 96374; 97110; 97116; 97162; 97166; 97530; 99285; A9270; J0696; J7030; J7120; J7512

== ENCOUNTER → 2022-05-06 | Outpatient (CLI) | payer OTHER ==
[~2022-05-06] MED LIST changes: +CATAPRES0.2 M1 PO; +CLOT10 MT
== END | disposition home or self-care (01) ==
LOC: LAB 14:12 → LAB SHORT 14:12
DX: N39.0 Urinary tract infection, site not specified (principal)
CPT/HCPCS: 87077; 87086; 87186

== ENCOUNTER 2022-09-04 18:14 | Inpatient (IN) | payer OTHER ==
[~2022-09-04] VITALS: Ht 162.6 cm; Wt 68.0 kg
[2022-09-04 19:52] LABS: BASOPHILS ABSOLUTE AUTO 0.03 K/mm3 (0.00-0.23); BASOPHILS PERCENT AUTO 0 % (0-2); EOSINOPHILS PERCENT AUTO 1 % (0-6); IMMATURE GRAN ABSOLUTE AUTO 0.04 K/mm3 (0.00-0.10); IMMATURE GRAN PERCENT AUTO 1 % (0-1); LYMPHOCYTES PERCENT AUTO 14 % (21-46); MONOCYTES PERCENT AUTO 7 % (4-13); Mean Corpuscular HGB 30.7 pg (26.0-34.0); Mean Corpuscular HGB Conc 34.2 g/dL (31.5-36.5); Mean Corpuscular Volume 90 fL (80-100); Mean Platelet Volume 7.9 fL (9.1-12.4); NEUTROPHILS ABSOLUTE AUTO 6.22 K/mm3 (1.96-9.15); NEUTROPHILS PERCENT AUTO 77 % (41-73); Platelet Count 183 K/mm3 (150-400); RDW Coefficient Variation 13.2 % (11.7-14.2); RDW Standard Deviation 43.8 fL (35.1-46.3); Red Blood Cell Count 4.24 M/mm3 (3.80-5.20); White Blood Cell Count 8.09 K/mm3 (4.00-11.30)
[2022-09-04 20:21] LABS: Bun/Creatinine Ratio 29.1 (12.0-20.0); Calcium, Blood 8.6 mg/dL (8.5-10.1); Creatinine, Blood 0.86 mg/dL (0.40-1.00); Potassium, Blood 5.5 mmol/L (3.5-5.5); Thyroid Stimulating Hormone 3.27 uIU/mL (0.360-4.800)
[2022-09-04] MEDS ORDERED: ZOLOFT25 MG PO (23:15)
[2022-09-04] MEDS ORDERED: K-Dur10 MEQ PO (23:15)
[2022-09-04] MEDS ORDERED: SPIRONOLACTONE25 MG PO (23:15)
[2022-09-05 00:32] LABS: Bun/Creatinine Ratio 27.4 (12.0-20.0); Calcium, Blood 8.7 mg/dL (8.5-10.1); Creatinine, Blood 0.84 mg/dL (0.40-1.00); Potassium, Blood 4.9 mmol/L (3.5-5.5)
--- NOTE | 2022-09-05 03:05 | NUR ---
SHIFT SUMMARY PT ARRIVED TO FLOOR AROUND 2324. ASSESSMENT COMPLETE, ADMISSION COMPLETE, PT UNABLE TO REMEBER WHAT MEDICATIONS SHE TAKES. SKIN ASSESSMENT DONE, SKIN INTACT BESIDES A SMALL SCAB ONL TOE. PT ORIENTED X3/4, KNOWS GENERAL IDEAS. FORGETFUL THROUHGOUT THE NIGHT. BED ALARM ON. PT UP TO BEDSIDE COMMODE. PT HAD MULTIPLE BOWEL MOVEMENTS IN ER, X1 BM ON FLOOR. TRENDING NA LEVELS. IV FLUIDS CONTINUES. PT DENIES ANY S/S OF DISTRESS, NO PAIN OR SOB. CALL LIGHT IN REACH, FREQUENT ROUNDING TO ASSESS NEEDS.
[2022-09-05 06:38] LABS: Bun/Creatinine Ratio 25.3 (12.0-20.0); Calcium, Blood 8.7 mg/dL (8.5-10.1); Creatinine, Blood 0.71 mg/dL (0.40-1.00); Potassium, Blood 4.8 mmol/L (3.5-5.5)
[2022-09-05 09:13] LABS: Bun/Creatinine Ratio 23.3 (12.0-20.0); Calcium, Blood 8.9 mg/dL (8.5-10.1); Creatinine, Blood 0.69 mg/dL (0.40-1.00); Potassium, Blood 4.5 mmol/L (3.5-5.5)
[2022-09-05 15:51] LABS: Bun/Creatinine Ratio 26.5 (12.0-20.0); Calcium, Blood 8.8 mg/dL (8.5-10.1); Creatinine, Blood 0.64 mg/dL (0.40-1.00); Potassium, Blood 5.4 mmol/L (3.5-5.5)
--- NOTE | 2022-09-05 17:18 | NUR ---
PT IS A/O X 2-3. PLEASANT AND COOPERATIVE. THE PT HAS BEEN MILDLY CONFUSED/FORGETFULL AT TIMES, SO FAR HAS BEEN EASILY REDIRECTABLE. THE PT APPEARS TO BE BREATHING EASILY ON RA. THE PT IS UP TO THE BSC WITH MINIMAL ASSISTANCE. THE PT HAS DENIED ANY PAIN SO FAR THIS SHIFT. THE PTS FAMILY HAS BEEN IN TO VISIT T/O THE DAY. CALL LIGHT IN REACH. WILL CONTINUE TO MONITOR AND ASSESS FOR CHANGES
--- NOTE | 2022-09-06 03:33 | NUR ---
SHIFT SUMMARY NO OVERNIGHT EVENTS. PT INCREASING MORE FORGETFUL THROUGHOUT THE NIGHT, FREQUENT REMINDING WHERE SHE IS, FREQUENT REMINDING TO USE CALL LIGHT BEFORE GETTING OOB. UP TO BEDSIDE CODDODE X1 ASSIST. DENIES ANY S/S OF DISTRESS. IV FLUIDS CONTINUE. PT DID NOT SLEEP WELL, UP EVERY HOUR TO USE COMMODE. FREQUENT ROUNDING TO ASSIST IN NEEDS.
[2022-09-06 06:17] LABS: BASOPHILS ABSOLUTE AUTO 0.05 K/mm3 (0.00-0.23); BASOPHILS PERCENT AUTO 1 % (0-2); EOSINOPHILS ABSOLUTE AUTO 0.22 K/mm3 (0.00-0.68); EOSINOPHILS PERCENT AUTO 3 % (0-6); Hematocrit 37.8 % (33.0-51.0); Hemoglobin 12.9 g/dL (11.5-16.0); IMMATURE GRAN ABSOLUTE AUTO 0.03 K/mm3 (0.00-0.10); IMMATURE GRAN PERCENT AUTO 0 % (0-1); LYMPHOCYTES ABSOLUTE AUTO 0.88 K/mm3 (0.84-5.20); LYMPHOCYTES PERCENT AUTO 10 % (21-46); MONOCYTES ABSOLUTE AUTO 0.68 K/mm3 (0.16-1.47); MONOCYTES PERCENT AUTO 8 % (4-13); Mean Corpuscular HGB 30.4 pg (26.0-34.0); Mean Corpuscular HGB Conc 34.1 g/dL (31.5-36.5); Mean Corpuscular Volume 89 fL (80-100); Mean Platelet Volume 8.3 fL (9.1-12.4); NEUTROPHILS PERCENT AUTO 79 % (41-73); Platelet Count 181 K/mm3 (150-400); RDW Coefficient Variation 12.8 % (11.7-14.2); Red Blood Cell Count 4.24 M/mm3 (3.80-5.20); White Blood Cell Count 8.96 K/mm3 (4.00-11.30)
[2022-09-06 11:10] LABS: Albumin, Blood 3.3 g/dL (3.4-5.0); Albumin/Globulin Ratio 0.9 (0.8-1.8); Bilirubin, Total 1.1 mg/dL (0.1-1.0); Bun/Creatinine Ratio 21.9 (12.0-20.0); Calcium, Blood 9.2 mg/dL (8.5-10.1); Creatinine, Blood 0.64 mg/dL (0.40-1.00); Globulin, Blood 3.7 g/dL (2.2-4.0); Magnesium, Blood 1.8 mg/dL (1.6-2.4); Phosphorus, Blood 3.3 mg/dL (2.5-4.9); Potassium, Blood 4.7 mmol/L (3.5-5.5)
[2022-09-06] MEDS ORDERED: MIRALAX17 GM PO (14:22)
[2022-09-06] MEDS ORDERED: CARV25 PO (14:22)
[2022-09-06] MEDS ORDERED: NIFE30ER PO (14:23)
[2022-09-06] MEDS ORDERED: SODCHL1 PO (14:23)
--- NOTE | 2022-09-06 15:17 | NUR ---
DISCHARGE PATIENT TRANSPORTED VIA WHEELCHAIR TO PRIVATE VEHICLE. DISCHARGE INSTRUCTIONS EXPLAINED TO PATIENT. PATIENT STATED UNDERSTANDING. PACKET SENT WITH PATIENT. BELONGINGS SENT WITH PATIENT. IV REMOVED WITHOUT DIFFICULTY. MEDICATIONS FA[facility]ED [facility] [place] [facility] [place]. [facility] TO SCHEDULE FOLLOW UP APPOINTMENT AND LABS. [facility] TO CONTACT PATIENT FOR SERVICES.
== END 2022-09-06 14:50 | disposition home health service (06) | DRG 641 ==
LOC: ER 18:14 → MEDS 18:15
PROVIDERS: Emergency Medicine; Family Medicine; ADMIT Family Medicine
DX: E87.1 Hypo-osmolality and hyponatremia (principal); K62.5 Hemorrhage of anus and rectum; I50.32 Chronic diastolic (congestive) heart failure; I48.91 Unspecified atrial fibrillation; K59.00 Constipation, unspecified; I11.0 Hypertensive heart disease with heart failure; E03.9 Hypothyroidism, unspecified; I89.0 Lymphedema, not elsewhere classified; F41.9 Anxiety disorder, unspecified; F32.A Depression, unspecified; E86.0 Dehydration; Z96.643 Presence of artificial hip joint, bilateral; Z88.0 Allergy status to penicillin; Z88.8 Allergy status to other drugs, medicaments and biological substances; Z88.5 Allergy status to narcotic agent; Z79.899 Other long term (current) drug therapy; Z79.01 Long term (current) use of anticoagulants; Z79.02 Long term (current) use of antithrombotics/antiplatelets; Z90.49 Acquired absence of other specified parts of digestive tract; Z98.890 Other specified postprocedural states; Z90.710 Acquired absence of both cervix and uterus; Z90.11 Acquired absence of right breast and nipple; Z98.42 Cataract extraction status, left eye; Z98.41 Cataract extraction status, right eye; Z87.891 Personal history of nicotine dependence
CPT/HCPCS: 36415; 74018; 80048; 80053; 83735; 83930; 84100; 84443; 85025; 96360; 99285-25; A9270; J7030

== ENCOUNTER → 2022-09-10 | Outpatient (CLI) | payer OTHER ==
[~2022-09-10] MED LIST changes: +CARV25 PO; +K-Dur10 MEQ PO; +MIRALAX17 GM PO; +NIFE30ER PO; +SODCHL1 PO; +SPIRONOLACTONE25 MG PO; +ZOLOFT25 MG PO
== END | disposition home or self-care (01) ==
LOC: LAB SHORT 11:30 → LAB 11:30
DX: R30.0 Dysuria (principal)
CPT/HCPCS: 87077; 87086; 87186

== ENCOUNTER → 2023-05-01 | Outpatient (CLI) | payer OTHER ==
[~2023-05-01] MED LIST changes: +ACET325 PO; +ELIQUIS5 M2 PO; +KLOR-CON 1010 ME7 PO; +LORA10ER PO; +SERT25 PO; +SPIR25 PO
== END | disposition home or self-care (01) ==
LOC: LAB SHORT 14:00 → LAB 14:00
DX: R30.0 Dysuria (principal)
CPT/HCPCS: 87077; 87086; 87186

== ENCOUNTER → 2023-06-30 | Outpatient (CLI) | payer OTHER ==
[2023-06-30 12:46] LABS: Appearance, Urine Clear (Clear); Bilirubin, Urine Neg (Neg); Blood, Urine Neg (Neg); Color, Urine Yellow (P-Yellow); Glucose Qualitative, Urine Neg (Neg); Ketones, Urine Neg (Neg); Leukocyte Esterase, Urine Neg (Neg); Nitrite, Urine Neg (Neg); Protein, Urine Neg (Neg); Urobilinogen, Urine NORM (Normal); pH, Urine 6.5 (5.0-8.0)
== END ==
LOC: LAB 11:49 → LAB SHORT 11:49
PROVIDERS: Nurse Practitioner Family
DX: N39.0 Urinary tract infection, site not specified (principal)
CPT/HCPCS: 81003